=== PATIENT | male | born 1995 | race Caucasian/White ===

== ENCOUNTER 2019-05-31 08:16 | Outpatient (CLI) | payer MEDICARE, BC ==
[2019-05-31 09:52] LABS: Hematocrit 46.7 % (35.5-45.6); Hemoglobin 15.8 gm/dl (11.8-15.2); Mean Corpuscular HGB Conc 34 % (32-34); Mean Corpuscular Volume 84 fl (84-94); Platelet Count 203 K/mm3 (140-440); Red Blood Count 5.58 M/mm3 (3.65-5.03); Red Cell Distribution Width 13.7 % (13.2-15.2)
[2019-05-31 10:06] LABS: Alanine Aminotransferase 55 units/L (7-56); BUN/Creatinine Ratio 13; Blood Urea Nitrogen 9 mg/dL (9-20); Calcium 9.6 mg/dL (8.4-10.2); Hemolysis Index 3; LDL Cholesterol,Direct 83 mg/dL (50-130)
[2019-05-31 12:05] LABS: Chol/HDL Ratio 2.89 %; HDL Cholesterol 49 mg/dL (40-59)
[2019-06-03 13:00] LABS: Vitamin D, 25-OH, D2 <4 ng/mL
== END 2019-05-31 08:17 | disposition home or self-care (01) ==
LOC: LAB 08:16
PROVIDERS: ATTEND Internal Medicine
DX: Z13.220 Encounter for screening for lipoid disorders (principal); Z13.21 Encounter for screening for nutritional disorder; Z13.1 Encounter for screening for diabetes mellitus; R79.89 Other specified abnormal findings of blood chemistry
CPT/HCPCS: 36415; 80053; 80061; 82306; 82607; 83036; 84443; 85027

== ENCOUNTER 2019-06-05 13:04 | Outpatient (CLI) | payer BC, MEDICARE | END 2019-06-05 13:05 | disposition home or self-care (01) | LOC: LAB 13:04 | PROVIDERS: ATTEND Specialist | DX: G93.41 Metabolic encephalopathy (principal) | CPT/HCPCS: 36415; 83921 ==